=== PATIENT | male | born 1985 ===

== ENCOUNTER 2024-02-29 10:48 | Emergency (ER) | payer OTHER ==
[~2024-02-29] VITALS: Ht 165.1 cm; Wt 109.1 kg
[2024-02-29 11:14] VITALS: BP 134/85; PULSE 82; TEMP 98.2; O2SAT 98
[2024-02-29 11:55] VITALS: RESP 18
== END 2024-02-29 11:57 ==
LOC: ER 10:48
DX: Z02.89 Encounter for other administrative examinations (principal); F41.9 Anxiety disorder, unspecified; V49.40XA Driver injured in collision with unspecified motor vehicles in traffic accident, initial encounter; Y93.89 Activity, other specified; Y92.89 Other specified places as the place of occurrence of the external cause; Y99.8 Other external cause status
CPT/HCPCS: 99283